=== PATIENT | female | born 2000 | race Two or more races ===

== ENCOUNTER 2022-03-27 10:45 | Emergency (ER) | payer OTHER ==
[2022-03-27] MEDS ORDERED: Meclizine 25 MG Tab PO ONE (12:15)
== END 2022-03-27 12:49 | disposition home or self-care (01) ==
LOC: JP.ED 10:45
DX: R42 Dizziness and giddiness (principal); F17.210 Nicotine dependence, cigarettes, uncomplicated
CPT/HCPCS: 36415; 80048; 81001; 85025; 99284; A9270